=== PATIENT | male | born 1940 | race Caucasian/White ===

== ENCOUNTER 2023-07-07 01:26 | Emergency (ER) | payer OTHER, SELFPAY ==
--- NOTE | 2023-07-07 01:59 | ED.GENMED ---
History of Present Illness
General
Chief Complaint: Change in Mental Status
Source: patient
Exam Limitations: altered mental status
Time Seen by Provider: 07/07/23 01:40
Nursing documentation reviewed up to this point in time: agreed with
Travel History
Have you had any contact with someone who has COVID-19?: No
Do you have any symptoms of coronavirus? Fever > 100 degrees, chills, cough, shortness of breath, sore throat, loss of taste or smell, muscle aches, or headache?: No
History of Present Illness
History of Present Illness:
83-year-old male from care home presents for evaluation he has had a wound on his scalp for a few weeks underwent a punch biopsy being treated with honey and Bactrim, brought in today due to 'change in mental status' because his dressing came off and he
states the plastic items are noting in his hand including a plastic screwdriver
Past History
Past History
ED Past Medical History: Cancer (Renal cell CA, prostate cancer ), GERD, Other (Diverticulosis/diverticulitis ) and Other (Chronic back pain, arthritis left shoulder. Takes ASA 3 tabs daily for pain.)
ED Past Surgical History: Tonsilectomy and Other (Left nephrectomy, prostatectomy )
Patient has exhibited threatening behavior?: No
PSI?: No
Social History
Tobacco: Non-smoker
Alcohol: None
Personal:
Living: senior care
Employment: Retired
Review of Systems
Review of Systems
Unable to obtain full review of systems at this time due to: other (Transfer record from the care home)
All Other Systems: Not applicable
Musculoskeletal: Reports no symptoms
Skin: Reports no symptoms
Neurological: Reports no symptoms
Phy Exam
Physical Exam
Physical Exam:
Physical Exam
General: no apparent distress, not acutely ill
Neck: Half dollar shaped elliptical wound top of his scalp with some honey like material in it
Lungs: no acute respiratory distress.
Neuro: alert and oriented. no focal neurological deficits
Skin: no rash
Psychiatric: Speech is slightly pressured, tangential but redirectable
Extremities: no edema.
Course
Orders/Labs/Results
Orders:
Orders
07/07/23 01:51
CT Head W/o Iv Contrast Urgent
Comment:
Reason For Exam: confusion head wound
07/07/23 01:55
Complete Blood Count/With Diff Urgent
Comprehensive Metabolic Panel Urgent
07/07/23 02:30
0.9% Sodium Chloride 1000 ml [Nss] 1,000 ml IV BOLUS
Abnormal Lab Results
07/07/23
01:55
RBC 3.88 L 10^6/uL
(4.70-6.10)
Hgb 12.5 L g/dL
(13.0-18.0)
Hct 34.0 L %
(39.0-52.0)
MCH 32.2 H pg
(27.0-31.0)
Absolute Neuts (auto) 7.3 H 10^3/uL
(1.4-6.5)
Absolute Monos (auto) 0.8 H 10^3/uL
(0.1-0.6)
Neutrophils % 75.3 H %
(42.2-75.2)
Lymphocytes % 15.0 L %
(20.5-51.1)
BUN 27 H mg/dl
(9-20)
Creatinine 1.7 H mg/dL
(0.7-1.3)
Calcium 11.2 H mg/dl
(8.4-10.2)
07/07/23 01:55
07/07/23 01:55
Vital Signs
Initial and Last Documented VS:
Initial Vital Signs
Temp Pulse Resp Pulse Ox
98.4 F 106 18 98
07/07/23 01:30 07/07/23 01:30 07/07/23 01:30 07/07/23 01:30
Last Documented Vital Signs
Temp Pulse Resp Pulse Ox
98.4 F 106 18 98
07/07/23 01:30 07/07/23 01:30 07/07/23 01:30 07/07/23 01:30
MDM/Problems Addressed
Differential Diagnosis Includes:
Psychosomatic psychiatric toxic metabolic doubt acute infectious
MDM/Problems Addressed:
Confusion scalp wound
*Critical Care Note
Total Time (30-74mins, 75-104mins- exclusive of procedures): Not Applicable
Update Note
Update Note:
Patient is nontoxic-appearing, etiology is not clear is a fairly poor historian will check CT of the head electrolytes CBC
2:30 AM update labs are noted creatinine up a bit, will hold his Bactrim given some fluids unclear if this explains his symptoms or not
Vision radiology report noted
ED Attending Note
-
Portions of this chart may have been created with voice recognition software.� Occasional wrong word or��sound alike� substitutions may have occurred due to the inherent limitations of voice recognition software.
Discharge Plan
Departure
Patient Disposition: Home (Routine Discharge)
Date of Disposition: 07/07/23
Time of Disposition: 03:47
Patient with high blood pressure during this ER visit?: No
Condition: Good
Covid-19: Not Applicable
Discharge Problem:
Visit for wound care
Instructions: Altered Mental Status (DC)
Prescriptions:
No Action
vitamin E 1,000 UNIT capsule
1,000 unit PO DAILY
ascorbic acid (vitamin C) [Vitamin C] 1,000 MG tablet
1,000 mg PO DAILY
Vitamin A
1 tab PO DAILY
Vitamin D3 5,000 UNITS
5,000 units PO DAILY
doxycycline hyclate 100 MG capsule
100 mg PO Q12 Qty: 20 0RF
Referrals:
[facility] [Family Provider] -
Activity Restrictions/Additional Instructions:
Stop taking Bactrim antibiotic
Follow-up with your physicians at the senior care
Interventions
Interventions:
*Risk Screen - Suicide Last Done: 07/07/23 01:49
*General Assessment Last Done: 07/07/23 01:49
*Neglect/Abuse Screening Last Done: 07/07/23 01:49
ED- Neurological Assessment Last Done: 07/07/23 01:50
ED Swallowing Screen Last Done: 07/07/23 01:50
Discharge Date and Time
Print Language: FRENCH
[2023-07-07 02:01] LABS: % Basophils 0.5 % (0-2); % Eosinophils 0.2 % (0-6); % Immature Granulocytes 0.4 % (0-0.5); % Monocytes 8.6 % (1.7-9.3); % Neutrophils 75.3 % (42.2-75.2); Absolute Basophils 0.1 10^3/uL (0-0.2); Absolute Lymphocytes 1.4 10^3/uL (1.2-3.4); Absolute Monocytes 0.8 10^3/uL (0.1-0.6); Absolute Neutrophils 7.3 10^3/uL (1.4-6.5); Hemoglobin 12.5 g/dL (13.0-18.0); Mean Corp Hgb Conc. 36.8 g/dL (33.0-37.0); Mean Corpuscular Hgb 32.2 pg (27.0-31.0); Mean Corpuscular Volume 87.6 fL (80.0-94.0); Mean Platelet Volume 9.1 fL (7.4-10.4); Nucleated Red Blood Cells % 0 % (-); Platelet Count 278 10^3/uL (130-400); Red Blood Cell Count 3.88 10^6/uL (4.70-6.10); Red Cell Dist. Width 12.2 % (11.5-14.5); White Blood Cell Count 9.6 10^3/uL (4.8-10.8)
[2023-07-07 02:13] LABS: ALT (SGPT) 16 U/L (0-50); AST (SGOT) 28 U/L (17-59); Alkaline Phosphatase 79 U/L (38-126); Blood Urea Nitrogen 27 mg/dl (9-20); Calcium 11.2 mg/dl (8.4-10.2); Carbon Dioxide 22 mmol/L (22-30); Chloride 105 mmol/L (98-107); Glucose 93 mg/dl (70-99); Potassium 4.6 mmol/L (3.5-5.1); Sodium 137 mmol/L (135-145); Total Bilirubin 0.5 mg/dl (0.2-1.3); eGFR 39.26
[2023-07-07] MEDS: NSS 1000 IV (03:00)
== END 2023-07-07 05:30 | disposition home or self-care (01) ==
LOC: EMR 01:26
PROVIDERS: EMERGENCY PHYSICIAN Emergency Medicine
DX: Z48.01 Encounter for change or removal of surgical wound dressing (principal); S01.04XA Puncture wound with foreign body of scalp, initial encounter; Y84.8 Other medical procedures as the cause of abnormal reaction of the patient, or of later complication, without mention of misadventure at the time of the procedure
CPT/HCPCS: 99284; 96360; 70450; 80053; 85025

== ENCOUNTER 2023-11-18 03:25 | Inpatient (IN) | payer OTHER, SELFPAY ==
[2023-11-17 21:59] VITALS: BP 127/93
[2023-11-17 22:00] VITALS: BP 127/93
[2023-11-17 22:05] VITALS: BMI 26.1
--- NOTE | 2023-11-17 22:12 | ED.GENMED ---
History of Present Illness
General
Chief Complaint: Abdominal Pain
Time Seen by Provider: 11/17/23 22:02
History of Present Illness
History of Present Illness:
83-year-old male presents from [facility] for evaluation of a nonreducing right inguinal hernia. Has a history of this hernia and has been able to reduce in the past however earlier this evening it 'popped out' and he was unable to
reduce it. He was given acetaminophen and fentanyl prehospital without any pain relief. Denies any nausea or vomiting
Past History
Past History
ED Past Medical History: Cancer (Renal cell CA, prostate cancer ), GERD, Other (Diverticulosis/diverticulitis ) and Other (Chronic back pain, arthritis left shoulder. Takes ASA 3 tabs daily for pain.)
ED Past Surgical History: Tonsilectomy and Other (Left nephrectomy, prostatectomy )
Patient has exhibited threatening behavior?: No
PSI?: No
Social History
Tobacco: Non-smoker
Alcohol: None
Personal:
Living: half-way
Employment: Retired
Review of Systems
Review of Systems
Allergies reviewed?: Yes
All Other Systems: ROS reviewed and negative except as documented in HPI and ROS
Phy Exam
Physical Exam
Physical Exam:
GEN: Well appearing, NAD, WDWN
HEENT: Oral mucosa moist, no scleral icterus
Cardiac: Regular rate
Lung: No respiratory distress, no tachypnea
Abdomen: Abdomen is generally soft and nondistended/nontender, there is a large right indirect inguinal hernia that is firm and nonreducible
MSK: No gross deformity or injuries
Skin: Good color, no pallor or jaundice, no rashes
Neuro: AO x3, moves all extremities freely
Psych: Calm, cooperative
Course
Orders/Labs/Results
Orders:
Orders
11/17/23 22:12
HYDROmorphone [Dilaudid] 0.5 mg IV NOW STA
11/17/23 22:36
CT Abd/Pel (IV only)-DH only Urgent
Comment:
Reason For Exam: incarcerated inguinal hernia
HYDROmorphone [Dilaudid] 1 mg IV NOW STA
11/17/23 22:43
Complete Blood Count/With Diff Urgent
Comprehensive Metabolic Panel Urgent
11/18/23 00:09
NG Tube [GI tube insertion- Treatment] ONCE
Piperacillin/Tazo 3.375 Gram [Zosyn] 3.375 gram in 50 ml IV NOW
11/18/23 00:56
Fentanyl Citrate/Pf [Sublimaze] 25 mcg IV PACU-Q5MPRN PRN
Fentanyl Citrate/Pf [Sublimaze] 50 mcg IV PACU-Q5MPRN PRN
Meperidine [Demerol] 12.5 mg IV PACU-Q5MPRN PRN
Ondansetron Injectable [Zofran] 4 mg IV PACU-ONCEPRN PRN
Prochlorperazine [Compazine] 5 mg IV PACU-ONCEPRN PRN
Notify MD As Directed
Notify physician if: for SDS patients with known or suspected sleep obstructive sleep apnea, monitor in the
PACU.
Notify MD for any apneic/desaturation episodes
O2 Therapy [RESP] Urgent
Titrate/Wean O2 to maintain O2 sat greater than (%): 92
Special Instructions: -Provide supplemental oxygen to achieve O2 sat of 92% or greater.
-After 15 min, may wean O2 and discontinue if patient is able to maintain O2 sat of 92%
or greater during recovery period.
If patient is a discharge home, without oxygen therapy, notify anestheiologist if
unable to maintain O2 SAT of 92% or greater on room air for MD clearance.
11/18/23 01:00
Flush (0.9% Sodium Chloride) [Flush (Nss)] See Dose Instructions IV PER PROTOCOL
Normosol (Mult Electrolytes) [Normosol-R/Plasmalyte-A] 1,000 ml IV PER PROTOCOL
11/18/23 01:02
Dexamethasone Sod Phosphate [Decadron] 20 mg .ROUTE .STK-MED ONE
Fentanyl Citrate/Pf [Sublimaze] 100 mcg .ROUTE .STK-MED ONE
Lidocaine 2% Mpf [Xylocaine Mpf 2%] 100 mg .ROUTE .STK-MED ONE
Ondansetron Injectable [Zofran] 4 mg .ROUTE .STK-MED ONE
Propofol [Diprivan] 20 ml .ROUTE .STK-MED
Rocuronium Conway [Rocuronium] 50 mg .ROUTE .STK-MED ONE
11/18/23 01:08
Sevoflurane [Ultane] 500 ml .ROUTE .STK-MED ONE
11/18/23 01:10
Admit/Transfer Patient As Directed
Co-Sign Provider:
Level of Care: Inpatient admission
Assign to:: Telemetry
Physician / Group: hospitalist
Diagnosis: strangulated right inguinal hernia
Reason for Telemetry: Arrhythmia
Date to Stop Telemetry: 11/21/23
Time to Stop Telemetry: 11:00
Reason for Hospitalization: surgery, abx, pain control
Expected length of stay greater than two midnights?: Yes
ELOS- Estimated Length of Stay in days: 3
I certify the patient meets the requirements for IP care: Yes
11/18/23 01:11
PRN Pain Medication Management As Directed
May give lesser potent ordered pain med per pt: Yes
preference::
Protocol:: Medication orders for pain may be administered in a
manner that supports deferring to patient preference
when the pt is:
- Requesting an ordered lesser potent pain medication.
Least to most potent pain medications are defined
as: acetaminophen < NSAID < tramadol < opioids
(morphine, oxycodone, hydromorphone).
- Requesting a lesser dose of the same medication IF
ORDERED.
- Requesting a less intrusive route of administration
if both routes are prescribed by the provider (PO <
IV).
11/18/23 01:13
Code Status As Directed
Resuscitation Status: Full Code
11/18/23 01:20
Bupivacaine 0.25%Pf/Epinephrin [Sensorcaine-Epi 0.25%-0.0005] 30 ml .ROUTE .STK-MED ONE
11/21/23 11:00
DC Protocol for Telemetry ONCE
Abnormal Lab Results
11/17/23
22:43
WBC 14.4 H 10^3/uL
(4.8-10.8)
RBC 4.44 L 10^6/uL
(4.70-6.10)
MCH 32.0 H pg
(27.0-31.0)
Abs Immat Gran (auto) 0.1 H 10^3/uL
(0-0.05)
Absolute Neuts (auto) 11.6 H 10^3/uL
(1.4-6.5)
Absolute Monos (auto) 1.0 H 10^3/uL
(0.1-0.6)
Neutrophils % 80.5 H %
(42.2-75.2)
Lymphocytes % 12.1 L %
(20.5-51.1)
Carbon Dioxide 21 L mmol/L
(22-30)
BUN 31 H mg/dl
(9-20)
Creatinine 1.4 H mg/dL
(0.7-1.3)
Glucose 118 H mg/dl
(70-99)
Calcium 10.5 H mg/dl
(8.4-10.2)
11/17/23 22:43
11/17/23 22:43
Vital Signs
Initial and Last Documented VS:
Initial Vital Signs
Temp Pulse Resp BP Pulse Ox
98.5 F 101 21 127/93 99
11/17/23 21:59 11/17/23 21:59 11/17/23 21:59 11/17/23 21:59 11/17/23 21:59
Last Documented Vital Signs
Temp Pulse Resp BP Pulse Ox
98.5 F 100 13 135/84 96
11/17/23 21:59 11/18/23 01:00 11/18/23 01:00 11/18/23 01:00 11/18/23 01:00
MDM/Problems Addressed
MDM/Problems Addressed:
I placed the patient in Trendelenburg with right leg in the frog-leg position, he received multiple doses of IV opiates and after ice application multiple attempts at manual reduction were unsuccessful. I reached out to general surgery after CT was
completed and the patient will be taken to the OR for urgent hernia reduction
*Critical Care Note
Total Time (30-74mins, 75-104mins- exclusive of procedures): 30 minutes
comment:
Critical care time: 30 minutes
Critical care time was exclusive of: Separately billable procedures, treating other patients, and teaching time
Critical care was necessary to treat or prevent imminent or life-threatening deterioration of the following conditions: Incarcerated hernia/bowel necrosis
Critical care time spent personally by me on the following activities:
[x] Review of old charts
[x] Obtaining history from patient or surrogate
[x] Ordering and review of the laboratory studies
[x] Ordering and review of radiographic studies
[x] Ordering and performing treatments and interventions
[x] Patient patient's response to treatment
[x] Development of treatment plan with patient or surrogate
ED Attending Note
-
Portions of this chart may have been created with voice recognition software.� Occasional wrong word or��sound alike� substitutions may have occurred due to the inherent limitations of voice recognition software.
Discharge Plan
Departure
Patient Disposition: OR
Date of Disposition: 11/18/23
Time of Disposition: 00:19
Presentation/result/management discussed w/ accepting MD/DO: Gen Surg--Thiago
Discharge Problem:
Inguinal hernia with strangulation
Prescriptions:
No Action
vitamin E 1,000 UNIT capsule
1,000 unit PO DAILY
ascorbic acid (vitamin C) [Vitamin C] 1,000 MG tablet
1,000 mg PO DAILY
Vitamin A
1 tab PO DAILY
Vitamin D3 5,000 UNITS
5,000 units PO DAILY
doxycycline hyclate 100 MG capsule
100 mg PO Q12 Qty: 20 0RF
Referrals:
UNKNOWN - PT DOES,NOT KNOW [Family Provider] -
Interventions
Interventions:
*Risk Screen - Suicide Last Done: 11/17/23 22:06
*General Assessment Last Done: 11/17/23 22:06
*Neglect/Abuse Screening Last Done: 11/17/23 22:06
ED- Fall Risk Assessment Last Done: 11/17/23 22:06
*ED COVID-19 Vaccine History Last Done: 11/17/23 22:06
*Nursing Disposition Last Done: 11/18/23 01:21
AD-Yylxhh-Pscuxewyac Assessment Last Done: 11/17/23 22:18
Discharge Date and Time
Discharge Date/Time: 11/18/23 01:22
Print Language: LUXEMBOURGISH
[2023-11-17] MEDS: DILAUDID 0.5 MG IV (22:15)
[2023-11-17] MEDS: DILAUDID 1 MG IV (22:43)
[2023-11-17 22:57] LABS: % Basophils 0.3 % (0-2); % Eosinophils 0.1 % (0-6); % Immature Granulocytes 0.3 % (0-0.5); % Lymphocytes 12.1 % (20.5-51.1); % Monocytes 6.7 % (1.7-9.3); % Neutrophils 80.5 % (42.2-75.2); Absolute Basophils 0.1 10^3/uL (0-0.2); Absolute Immature Granulocytes 0.1 10^3/uL (0-0.05); Absolute Lymphocytes 1.7 10^3/uL (1.2-3.4); Absolute Neutrophils 11.6 10^3/uL (1.4-6.5); Hematocrit 39.3 % (39.0-52.0); Hemoglobin 14.2 g/dL (13.0-18.0); Mean Corp Hgb Conc. 36.1 g/dL (33.0-37.0); Mean Corpuscular Volume 88.5 fL (80.0-94.0); Mean Platelet Volume 9.2 fL (7.4-10.4); Nucleated Red Blood Cells % 0 % (-); Platelet Count 254 10^3/uL (130-400); Red Blood Cell Count 4.44 10^6/uL (4.70-6.10); Red Cell Dist. Width 12.4 % (11.5-14.5); White Blood Cell Count 14.4 10^3/uL (4.8-10.8)
[2023-11-17 23:00] VITALS: BP 126/79
[2023-11-17 23:11] LABS: ALT (SGPT) 22 U/L (0-50); AST (SGOT) 22 U/L (17-59); Albumin 4.2 g/dl (3.5-5.0); Alkaline Phosphatase 103 U/L (38-126); Blood Urea Nitrogen 31 mg/dl (9-20); Calcium 10.5 mg/dl (8.4-10.2); Carbon Dioxide 21 mmol/L (22-30); Chloride 102 mmol/L (98-107); Estimated Creatinine Clearance 42 ml/min; Glucose 118 mg/dl (70-99); Potassium 4.1 mmol/L (3.5-5.1); Sodium 136 mmol/L (135-145); Total Bilirubin 0.5 mg/dl (0.2-1.3); Total Protein 6.8 g/dl (6.3-8.2); eGFR 49.56
[2023-11-17 23:45] VITALS: BP 127/78
[2023-11-18] VITALS (14 sets, daily range): BP systolic 112–135; BP diastolic 68–84
[2023-11-18] MEDS: ZOSYN 50 IV ×4 (00:28→17:21)
--- NOTE | 2023-11-18 01:11 | W.SUR.PREOP ---
Pre-Operative Surgical Note
-
I have examined this patient prior to the performance of the scheduled procedure.
The patient's condition is unchanged from the time of the current History and
Physical and the patient is able to undergo the scheduled procedure.
--- NOTE | 2023-11-18 01:12 | CON.GS ---
Consultation
-
Date/Time Consultation Requested: 11/18/2023 12 AM
Date/Time Consultation Performed: 11/18/2023 1 AM
Requesting Provider: Emergency department
Performing Provider: Dr. Das
Reason for Consultation: Incarcerated right inguinal hernia
Medical History
-
Chief Complaint: Right inguinal pain
History of Present Illness:
This is an 83-year-old incarcerated male who presents with 8 hours of right groin pain who presented to our ED and was found to have an incarcerated right inguinal hernia with small intestine confirmed on CT scan. His history is significant for
prostate surgery as well as nephrectomy for mass. He also endorses vomiting the food he ate earlier tonight around 7 PM. The patient denies Fever, Chest Pain, Shortness Of Breath, changes in urinary and bowel habits, unintentional weight loss,
jaundice, icterus, acolic stools.
Past Medical History
Past Medical History: None
Past Surgical History: Other (Left nephrectomy)
Social History
Tobacco: Non-Smoker
Alcohol: None
Drug: None
Living: [facility]
Family History
Family History: Reviewed & Not Pertinent
Allergies / Home Medications
Allergy/AdvReac Type Severity Reaction Status Date / Time
No Known Allergies Allergy Verified 07/07/23 01:30
�Medication �Instructions �Recorded �Confirmed �Type
Vitamin A 1 tab PO DAILY 06/13/08 12/28/13 History
ascorbic acid (vitamin C) 1,000 mg 1,000 mg PO DAILY 06/13/08 12/28/13 History
tablet (Vitamin C)
vitamin E 670 mg (1,000 unit) 1,000 unit PO DAILY 06/13/08 12/28/13 History
capsule
Vitamin D3 5,000 units PO DAILY 12/01/13 12/28/13 History
doxycycline hyclate 100 mg capsule 100 mg PO Q12 #20 caps 09/12/19 Rx
Review of Systems
-
All other systems: Negative unless noted
A 10 point review of systems was completed, and was negative except as per HPI.
Physical Exam
Vital Signs
Temp Pulse Resp BP Pulse Ox
98.5 F 95 0 127/78 99
11/17/23 21:59 11/18/23 00:30 11/18/23 00:15 11/18/23 00:00 11/18/23 00:30
11/16/23 11/17/23 11/18/23
06:59 06:59 06:59
Actual Weight 84.9 kg
Body Mass Index (BMI) 26.1
Lab Results
11/17/23 22:43
11/17/23 22:43
WBC 14.4 10^3/uL (4.8-10.8) H 11/17/23 22:43
Hgb 14.2 g/dL (13.0-18.0) 11/17/23 22:43
Hct 39.3 % (39.0-52.0) 11/17/23 22:43
Plt Count 254 10^3/uL (130-400) 11/17/23 22:43
Abs Immat Gran (auto) 0.1 10^3/uL (0-0.05) H 11/17/23 22:43
Neutrophils % 80.5 % (42.2-75.2) H 11/17/23 22:43
Physical Exam
General: Well Developed and No Apparent Distress
Respiratory: Non Labored Respirations
GI: Soft and Tender (Tender palpation in the right groin with an incarcerated irreducible right inguinal hernia. There is overlying skin changes.)
Genito-urinary: Inguinal Hernia
Data Reviewed
-
CT Scan: Image Personally Visualized and interpreted, Report Reviewed by me, Discussed with Physician and Discussed with Patient
Labs: Labs Reviewed by me, Discussed with Physician and Discussed with Patient
Total Time Spent with Patient (in minutes): 50
Assessment / Plan
-
This is an incarcerated 83-year-old male who presents with an incarcerated right inguinal hernia.
N.p.o., IV fluids, IV antibiotics.
Insert NG tube
Will plan for open exploration in the OR today. Possible bowel resection, possible mesh.
Given patient's social situation appreciate admission to the hospital service.
Risks/Benefits/Alternatives, expected postoperative course and possible complications (bleeding, infection, injury to surrounding structures, acute/chronic pain) discussed at length. Patient wishes to proceed with surgery. All questions answered.
Consent obtained.
I spent roughly 75 minutes in total for the care of this patient today including direct patient care and counseling, reviewing labs, imaging, coordination of care, as well as documentation.
--- NOTE | 2023-11-18 01:12 | HPS.HSE ---
Family Physician
-
Family Physician: NOT KNOW UNKNOWN - PT DOES
Chief Complaint
-
Abdominal pain
History of Present Illness
Patient is an 83-year-old who has a past medical history significant for prior prostate cancer and renal cancer status post nephrectomy and prostatectomy, solitary right kidney, CKD, presenting to the emergency department with acute abdominal pain.
Unable to obtain initial history from patient as he was rapidly taken to the OR. On arrival in the ED he had a CT scan of the abdomen which was concerning for incarcerated right inguinal hernia. Surgery was immediately consulted in the emergency
department patient taken to the OR.
His initial vitals showed that he was afebrile blood pressure was 137/78 with a pulse of 95. He had a white count of 14,000 hemoglobin of 14.2 and a platelet count of 254. Electrolytes are within normal limits except for creatinine of 1.4. His
calcium was 10.5.
Patient again seen status post OR. He was sedated was arousable. No acute distress. Immediate vital signs were stable.
Medical History
Past Medical History
Past Medical History: Reports Cancer (Renal cell cancer, prostate cancer)
Additional Past Medical History:
CKD
Past Surgical History: Reports Orthopedic (Laminectomy), Tonsilectomy and Urological (Prostatectomy)
Additional Past Surgical History:
Status post nephrectomy
Social History
Unable to obtain full social history at this time due to: Acuity
Tobacco: Non-smoker
Alcohol: None
Drug: None
Personal: Single
Living: Senior Care
Employment: Not Employed
Family History
Family History: Not pertinent
Allergies / Home Medications
Allergies reflects when Allergies were last updated in [facility].
Home Medications with original date entered in [facility]
Allergy/Medication List:
Allergies
Allergy/AdvReac Type Severity Reaction Status Date / Time
No Known Allergies Allergy Verified 07/07/23 01:30
Home Medications
NONE
Review of Systems
-
Unable to obtain full review of systems at this time due to: Acuity
Physical Exam
Vital Signs
Vital Signs
Temp Pulse Resp BP Pulse Ox
98.5 F 95 0 127/78 99
11/17/23 21:59 11/18/23 00:30 11/18/23 00:15 11/18/23 00:00 11/18/23 00:30
Physical Exam
General: No Apparent Distress
HEENT: NormoCephalic, Anicteric, Atraumatic and Other (NG tube)
Respiratory: Clear
Cardiac: S1/S2 and Tachycardia
Breast: Deferred by me
GI: Soft, Non Tender, Non Distended, Normal Bowel Sounds and Other (Incision site clean and dry)
Rectal: Deferred by Provider
Genito-urinary: Clear Urine and Drake
Musculoskeletal: No Clubbing, No Cyanosis and No Edema
Skin: Warm
Neuro: Sedated
Hematologic/Lymphatic: No Lymphadenopathy
Psych: Other (sedated)
Laboratory Results
-
11/17/23 22:43
11/17/23 22:43
Laboratory Results
Total Bilirubin 0.5 mg/dl (0.2-1.3) 11/17/23 22:43
AST 22 U/L (17-59) 11/17/23 22:43
ALT 22 U/L (0-50) 11/17/23 22:43
Alkaline Phosphatase 103 U/L (38-126) 11/17/23 22:43
Data Reviewed
-
CT Scan: Report Reviewed by me
Lab Data: Labs Reviewed by me
Old Records: Reviewed
Impression/Plan
-
IMPRESSION:
Patient with significant past medical history of renal cell cancer status post nephrectomy and solitary kidney, CKD, right inguinal hernia, prostate cancer status post prostatectomy, laminectomy, prior episode of encephalopathy secondary to
dehydration and ARAMIS, hypercalcemia who presents to the emergency department with abdominal pain nausea vomiting and was found to have a right incarcerated hernia. Surgery was consulted and patient taken immediately to the OR. Placed a surgical
note which indicated that the incarceration is led to ischemic bowel. He had small bowel resection and reanastomosis with a mesh repair of the hernia with absorbable mesh. There was minimal blood loss of about 23 cc. He had received about 750 mL
Ringer's.
PLAN:
1. Incarcerated Hernia S/P Repair - No immediate complications.
- admit to telemetry
- NPO for now
- Continue NGT to low intermittent suction
- LR at 100 ml/hr
- antiemetics and pain control
- ppi iv for now
- tirso-operative abx per surgery
Start DVT PPX
Code Status - Full Code
--- NOTE | 2023-11-18 03:06 | W.IMMPOSTOP ---
Surgical Immed Post Op Note
-
Primary Surgeon: Good Das MD
Assisting Surgeon: None
Pre-op Diagnosis: Incarcerated right inguinal hernia
Post-op Diagnosis: Incarcerated right inguinal hernia, necrotic small bowel
Procedure Performed:
1. Incarcerated inguinal hernia repair with mesh
2. Small bowel resection
Anesthesia Type: General
Specimen / Cultures:
1. Cord lipoma
2. Small bowel
Estimated Blood Loss: 23 cc
Complications: None
Operative Findings: Incarcerated right inguinal hernia containing hemorrhagic fluid and 6 cm of necrotic small bowel. This was resected and a [id number] stapled, functional end-to-end small bowel anastomosis was fashioned. After closure of the
mesenteric defect and NT tension stitch the anastomosis was returned to the abdomen. The hernia sac was closed but did have a notable sliding component of preperitoneal tissue. The indirect space was fairly small and there was a little
contamination but we elected to place a resorbable phasix mesh that was cut to size and secured in a typical Pat fashion.
POST OP PLAN:
Imaging: None
Labs: Routine AM
Diet: n.p.o., NG tube to low intermittent wall suction
Analgesia: IV Tylenol scheduled, Dilaudid 0.2mg q2h PRN
Neuro/vascular checks: q4h
AC/AP: Hold Therapeutic AC, Ok for DVT PPx
Activity: Ad Kimi
Wound/Incisions/Drains: Routine
Abx: Will continue Zosyn or equivalent x 4 days
Dispo: RNF
[2023-11-18] MEDS: LR 1000 IV ×2 (04:05→17:21)
[2023-11-18 06:05] LABS: Hematocrit 38.8 % (39.0-52.0); Hemoglobin 13.5 g/dL (13.0-18.0); Mean Corp Hgb Conc. 34.8 g/dL (33.0-37.0); Mean Corpuscular Hgb 32.1 pg (27.0-31.0); Mean Corpuscular Volume 92.2 fL (80.0-94.0); Mean Platelet Volume 9.8 fL (7.4-10.4); Platelet Count 221 10^3/uL (130-400); Red Blood Cell Count 4.21 10^6/uL (4.70-6.10); Red Cell Dist. Width 12.5 % (11.5-14.5); White Blood Cell Count 13.8 10^3/uL (4.8-10.8)
[2023-11-18 06:20] LABS: Blood Urea Nitrogen 29 mg/dl (9-20); Calcium 9.7 mg/dl (8.4-10.2); Carbon Dioxide 25 mmol/L (22-30); Chloride 102 mmol/L (98-107); Estimated Creatinine Clearance 42 ml/min; Glucose 136 mg/dl (70-99); Phosphorus 3.6 mg/dl (2.5-4.5); Potassium 4.7 mmol/L (3.5-5.1); Sodium 138 mmol/L (135-145); eGFR 49.56
--- NOTE | 2023-11-18 07:33 | W.PN.HOSP.TC ---
Addendum entered and electronically signed by Flavio Dominguez MD 11/18/23 22:58:
Attending Addendum-
I saw and evaluated the patient. I reviewed the resident�s note and agree with findings and plan as documented in the resident�s note. Sub: denies abd pain, passing flatus, no bm yet Full 12 point ROS reviewed and negative except as documented Exam:
Vitals reviewed in chart GEN-NAD heent NG tube in place heart RRR lungs clear abd incision glued/CDI pos BS Le no edema
# Incarcerated Hernia-
- s/p Incarcerated inguinal hernia repair with mesh and Small bowel resection- POD #0
- advance diet per surgery
- Continue NGT to low intermittent suction per surgery
- LR at 100 ml/hr per surgery
- antiemetics and pain control
- tirso-operative abx per surgery
# Leukocytosis
- trending down
- repeat cbc in am
# H/O prostatectomy/nephrectomy/urinary retention
- cont dalal for now
- dc dalal when more ambulatory
# CKD 3a
- avoid NT agents
- repeat bmp in am
cont DVT PPX
Code Status - Full Code
Dispo DC back to [facility] when ok with surgery
Time spent coordinating care, review of plan of care with resident, personally reviewed records in EMR, med rec, consults, notes, labs, radiology, d/w nursing � 58 mins
Original Note:
Today's Communication/Plan
-
Continue antiemetics and pain control. PPI IV for stress ulcer prophylaxis. Perioperative antibiotics as per surgery. Monitor surgical wound and ensure that it is not infected. Patient will be NPO as per surgery. Routine labs in the AM.
Assessment / Plan
Assessment / Plan
HPI: Patient is an 83-year-old male with a past medical history of prior prostate cancer, renal cancer s/p nephrectomy and prostatectomy, solitary right kidney, and CKD who presented from [facility] for evaluation of a nonreducing
right inguinal hernia. He was diagnosed with a right inguinal hernia on Gregoria 19 of this year. He believes that his hernia was due to stress as he was recently convicted for crime and incarcerated. After his diagnosis with inguinal hernia he was
given a hernia belt which he used diligently for 5 months. Unfortunately, the belt got dirty and the patient felt it was necessary to clean it so he took it off and washed it. Unfortunately he forgot to bring it with him back to his long-term
facility which he is currently incarcerated at and went about 3 to 4 days without the belt. He has had a history of this hernia and was able to reduce it in the past but earlier the evening prior to his presentation to the emergency department it
'popped out' and he was unable to reduce it. Immense pain along with nausea and vomiting ensued and the patient stated he threw up approximately 4 pounds of contents from his stomach. He was given acetaminophen and fentanyl prior to arriving to
the hospital without any pain relief. He denied any nausea or vomiting. A CT scan of the abdomen was conducted in the emergency department which was concerning for incarcerated right inguinal hernia. Surgery was immediately consulted and the
patient was taken to the the operating room. He was admitted to [facility] for incarcerated right inguinal hernia.
Past surgical history: Laminectomy, tonsillectomy, nephrectomy, and prostatectomy
Impression/Plan:
-Incarcerated right inguinal hernia: Resolved
S/p repair�no immediate complication
Patient has been admitted to telemetry to be monitored
N.p.o. for the time being
Continue NGT to low intermittent suction
Lactated Ringer's at 100 mL/hr
Continue antiemetics and pain control
PPI IV for stress ulcer prophylaxis
Perioperative antibiotics as per surgery
-Urinary retention:
Patient is currently Dalal status
-Lumbosacral spondylosis:
Continue to monitor
DVT prophylaxis: Heparin subcu
Full CODE STATUS
Anticipated Discharge: 24 - 48 hours
Subjective/Interval History
-
Date of Service: November 18, 2023
Met with patient at the bedside. Overall, he is doing much better and he feels like the surgery went well. He showed me his surgical wound that is healing and discussed his past medical history in regards to the hernia with me at the bedside. He
believes that he is recovering well. He got a phone call from his daughter prior to me finishing the interview and preferred to speak to his daughter at the present time.
Objective Data
-
Labs:
Laboratory Results
11/17/23 11/18/23
22:43 04:47
WBC 14.4 H 13.8 H
Hgb 14.2 13.5
Hct 39.3 38.8 L
Plt Count 254 221
Sodium 136 138
Potassium 4.1 4.7
Chloride 102 102
Carbon Dioxide 21 L 25
BUN 31 H 29 H
Creatinine 1.4 H 1.4 H
Glucose 118 H 136 H
Calcium 10.5 H 9.7
Total Bilirubin 0.5
AST 22
ALT 22
Alkaline Phosphatase 103
Vital Signs:
Vital Signs
Temp Pulse Resp BP Pulse Ox
99.0 F 100 18 120/74 99
11/18/23 06:12 11/18/23 06:12 11/18/23 06:12 11/18/23 06:12 11/18/23 06:12
I&O
11/17/23 11/18/23 11/19/23
06:59 06:59 06:59
Intake Total 200 / 200
Output Total 200 / 200
Balance 200 / 200 -200 / -200
[2023-11-18] MEDS: HEPARIN 5000 UNITS SC ×2 (09:14→19:54)
--- NOTE | 2023-11-18 10:47 | CM ---
Admitted for Incarcerated Hernia S/P Repair
Pt from [facility]. Called [facility], spoke with Dorian. Confirmed PCP - Claudia Garnett, Pharm - [facility]
Will return when medically ready for discharge
Plan - return to [facility] when medically ready
R - [phone]
F - [phone]
--- NOTE | 2023-11-18 14:41 | W.PN.GS2 ---
Today's Communication / Plan
-
Cont current care
Assessment / Plan
-
83M POD1 s/p open repair strangulated RIH with SBR and phasix mesh placement
AFVSS, passed small flatus, pain controlled
Plan:
Cont NGT decompression, await more robust bowel function
PRN pain meds
Cont tirso-op IV abx
DVT ppx
Ambulate
Cont dalal until more mobile
Subjective Data
-
Date of Service: November 18, 2023
AFVSS, denies pain, dneies n/v with NGT to suction, passed small flatus during encounter
Objective Data
-
Intake and Output
11/17/23 11/18/23 11/19/23
06:59 06:59 06:59
Intake Total 200 / 200
Output Total 300 / 300
Balance 200 / 100 -300 / -300
Intake:
IV fluids (Total) 200 / 200
Normosol 200 / 200
Output:
Gastrointestinal tube output ( 100 / 100
Total)
[place] Sump 100 / 100
Urine, Dalal 200 / 200
Vital Signs
Temp Pulse Resp BP Pulse Ox
97.7 F 92 18 112/72 96
11/18/23 11:05 11/18/23 11:05 11/18/23 11:05 11/18/23 11:05 11/18/23 12:59
Lab Results
11/18/23 04:47
11/18/23 04:47
Calcium 9.7 mg/dl (8.4-10.2) 11/18/23 04:47
Phosphorus 3.6 mg/dl (2.5-4.5) 11/18/23 04:47
Magnesium 2.0 mg/dl (1.6-2.3) 11/18/23 04:47
Total Bilirubin 0.5 mg/dl (0.2-1.3) 11/17/23 22:43
AST 22 U/L (17-59) 11/17/23 22:43
ALT 22 U/L (0-50) 11/17/23 22:43
Alkaline Phosphatase 103 U/L (38-126) 11/17/23 22:43
Total Protein 6.8 g/dl (6.3-8.2) 11/17/23 22:43
Albumin 4.2 g/dl (3.5-5.0) 11/17/23 22:43
Physical Exam
-
Gen: NAD
Abd: soft, approp ttp, groin incision cdi with mild expected localized soft tissue edema
[2023-11-19] MEDS: ZOSYN 50 IV ×5 (00:02→23:53)
[2023-11-19 03:14] VITALS: BP 124/73
[2023-11-19] MEDS: LR 1000 IV (05:27)
[2023-11-19 06:45] LABS: Hemoglobin 12.5 g/dL (13.0-18.0); Mean Corp Hgb Conc. 34.7 g/dL (33.0-37.0); Mean Corpuscular Hgb 31.2 pg (27.0-31.0); Mean Corpuscular Volume 89.8 fL (80.0-94.0); Mean Platelet Volume 9.6 fL (7.4-10.4); Platelet Count 235 10^3/uL (130-400); Red Blood Cell Count 4.01 10^6/uL (4.70-6.10); Red Cell Dist. Width 12.5 % (11.5-14.5); White Blood Cell Count 12.7 10^3/uL (4.8-10.8)
[2023-11-19 07:10] VITALS: BP 118/71
[2023-11-19 07:22] LABS: ALT (SGPT) 18 U/L (0-50); AST (SGOT) 18 U/L (17-59); Albumin 3.3 g/dl (3.5-5.0); Alkaline Phosphatase 59 U/L (38-126); Blood Urea Nitrogen 30 mg/dl (9-20); Calcium 9.3 mg/dl (8.4-10.2); Carbon Dioxide 25 mmol/L (22-30); Chloride 103 mmol/L (98-107); Estimated Creatinine Clearance 42 ml/min; Glucose 104 mg/dl (70-99); Potassium 4.2 mmol/L (3.5-5.1); Sodium 138 mmol/L (135-145); Total Bilirubin 0.8 mg/dl (0.2-1.3); Total Protein 5.9 g/dl (6.3-8.2); eGFR 49.56
--- NOTE | 2023-11-19 07:26 | OR.RPT ---
Operative Report
Operative Report
Patient Name: Bk Tejada
: 1940
Date of Operation: 11/18/2023
Preoperative Diagnosis: Incarcerated right inguinal hernia
Postoperative Diagnosis: Strangulated right inguinal hernia
Procedure(s):
1. Open right incarcerated inguinal hernia repair with mesh
2. Small bowel resection
Surgeon(s):
Dr. Das
Alternative Medicine Practitioner(s):
None
Anesthesia: General
Estimated Blood Loss: 23 cc
Urine Output: None
Drains/Lines/Implants:
7 x 10 cm phasix coated (absorbable) mesh cut to size
16 Lithuanian Drake catheter
Specimens:
1. Cord lipoma
2. Small bowel
Indication for surgery: This is an 83-year-old incarcerated male who presents with a 1 day history of right groin pain found to have an acutely incarcerated right inguinal hernia confirmed on CT and exam. After placement of an NG tube and
discussion of risk benefits and alternatives he was taken urgently to the operating room for operative exploration. Consent was signed.
Operative Findings: Incarcerated right inguinal hernia containing hemorrhagic fluid and 6 cm of necrotic small bowel. This was resected and a [id number] stapled, functional end-to-end small bowel anastomosis was fashioned. After closure of the
mesenteric defect and NT tension stitch the anastomosis was returned to the abdomen. The hernia sac was closed but did have a notable sliding component of preperitoneal tissue. The indirect space was fairly small and there was a little
contamination but we elected to place a resorbable phasix mesh that was cut to size and secured in a typical Pat fashion.
Details of the operation:
After induction of general anesthesia, the patient was clipped, prepped and draped in the supine position a 16 Lithuanian Drake catheter was placed. A team timeout was performed confirming administration of DVT prophylaxis, IV antibiotics and SCDs. The
ASIS and pubic tubercle were marked and an incision was chosen along the course of a skin line. The skin was anesthestized with Lidocaine. An incision was made through the skin line and dissection carried down through subcutaneous tissue and
Cara's fascia. The superficial epigastric vein was identified and ligated. A Small Jovani wound retractor was used to provide exposure. The external oblique fibers were then divided in the direction of travel. The ilioinguinal nerve was identified
and preserved. Dissection was carried down to the floor, which revealed the following:
At the site of the indirect (internal) ring, there was a moderately sized hernia sac that was purple in color with firm contents.
A cord lipoma was also identified and resected at the level of the internal ring.
The direct space, floor of the canal revealed no weakness.
The hernia sac was opened between 2 forceps and the sac was entered safely. There was an immediate ascencio of blood tinged fluid that was suctioned up. Inside the sac was a 6 cm section of frankly hemorrhagic small bowel that was not viable. We thus
elected to do a small bowel resection using a Jose technique. Our transection points were identified and incisions in the antimesenteric portion of the small bowel were made and slightly dilated to allow passage of an 80 purple load on a LASHANDA
stapler. The antimesenteric sides were together and the stapler was fired. The lumen was evaluated to show complete anastomosis and that there was no bleeding. We then used a second fire of an 80 purple to close the common enterotomy
taking care to ensure that the previous staple lines were offset. The intervening small bowel mesentery was ligated using bipolar energy device and the necrotic small bowel was passed off the field. The mesenteric defect was then closed with a
running silk suture and 2 crotch stitches were placed to reduce tension at the staple line. The bowel was then carefully placed back through the hernia sac into the abdomen. The hernia sac was then closed with Vicryl suture, after high ligation of
the sac. The field was irrigated with saline and suctioned until dry. Hemostasis was achieved. As there was minimal contamination I felt it was safe to place a resorbable mesh so a 7 x 10 cm phasic's coated (absorbable) mesh was cut to size and
secured at the pubic tubercle, inferiorly along the inguinal ligament, laterally/superiorly in the conjoint tendon using interrupted 0 PDS sutures. A slit was made in the mesh just wide enough to accommodate the cord this was also reapproximated
with the PDS suture. Care was taken not to injure or entrap any nerves. The external oblique fibers were then closed using a running 2-0 Vicryl suture. Cara's fascia was then closed with interrupted 3-0 Vicryl suture. The skin was closed in
layers with interrupted 3-0 vicryl deep dermals followed by a running subcuticular 4-0 Monocryl followed by dermabond. The patient returned to the Recovery Room in stable condition. Sponge and instrument counts were correct. No specimens sent to
Pathology.
I was the attending physician and performed the procedure with no assistance. I was present for all portions of the case
Good Das MD
--- NOTE | 2023-11-19 07:54 | W.PN.HOSP.TC ---
Addendum entered and electronically signed by Flavio Dominguez MD 11/19/23 22:18:
Attending Addendum-
I saw and evaluated the patient. I reviewed the resident�s note and agree with findings and plan as documented in the resident�s note. Sub: complains of abd pain @ incision site. passing gas had bm and urinating as usual. has appetite. Full 12 point
ROS reviewed and negative except as documented Exam: Vitals reviewed in chart GEN-NAD heart RRR lungs clear abd incision glued/CDI pos BS mild TTP @ incision Le no edema - non palp bladder
# Incarcerated Hernia-
- s/p Incarcerated inguinal hernia repair with mesh and Small bowel resection- POD #2
- advance diet - tolerating clears
- DC NGT
- DC IVF
- antiemetics and pain control
- tirso-operative abx per surgery
# Leukocytosis
- cont to trend down
- repeat cbc in am
# H/O prostatectomy/nephrectomy/urinary retention
- DC dalal
- successful TOV
# CKD 3a
- @ baseline
- avoid NT agents
- repeat bmp in am
cont DVT PPX
Code Status - Full Code
Dispo DC back to [facility] when ok with surgery - likely soon
Time spent coordinating care, review of plan of care with resident, personally reviewed records in EMR, med rec, consults, notes, labs, d/w nursing � 55 mins
Original Note:
Today's Communication/Plan
-
NGT decompression has been discontinued. The patient has been advanced to a clear liquid diet. Continue as needed pain meds. Continue perioperative IV antibiotics. Early mobility as tolerated. Dalal has been discontinued. Monitor urine output.
Assessment / Plan
Assessment / Plan
HPI: Patient is an 83-year-old male with a past medical history of prior prostate cancer, renal cancer s/p nephrectomy and prostatectomy, solitary right kidney, and CKD who presented from [facility] for evaluation of a nonreducing
right inguinal hernia. He was diagnosed with a right inguinal hernia on June 04 of this year. He believes that his hernia was due to stress as he was recently convicted for crime and incarcerated. After his diagnosis with inguinal hernia he was
given a hernia belt which he used diligently for 5 months. Unfortunately, the belt got dirty and the patient felt it was necessary to clean it so he took it off and washed it. Unfortunately he forgot to bring it with him back to his long-term
facility which he is currently incarcerated at and went about 3 to 4 days without the belt. He has had a history of this hernia and was able to reduce it in the past but earlier the evening prior to his presentation to the emergency department it
'popped out' and he was unable to reduce it. Immense pain along with nausea and vomiting ensued and the patient stated he threw up approximately 4 pounds of contents from his stomach. He was given acetaminophen and fentanyl prior to arriving to
the hospital without any pain relief. He denied any nausea or vomiting. A CT scan of the abdomen was conducted in the emergency department which was concerning for incarcerated right inguinal hernia. Surgery was immediately consulted and the
patient was taken to the the operating room. He was admitted to [facility] for incarcerated right inguinal hernia.
Past surgical history: Laminectomy, tonsillectomy, nephrectomy, and prostatectomy
Impression/Plan:
-Incarcerated right inguinal hernia: Resolved
S/p repair�no immediate complication
Patient has been admitted to telemetry to be monitored
Diet advanced to clear liquids
NGT discontinued
IV fluids increased
Dalal catheter removed
Continue antiemetics and pain control
PPI IV for stress ulcer prophylaxis
Continue perioperative antibiotics as per surgery for 3 more days
Early ambulation as tolerated.
-Leukocytosis:
White blood cells were at 14.4 on 11/17/2023 indicating leukocytosis
White blood cells continue to trend downwards and on 11/19/2023 his white blood cells were at 12.7
Continue to trend
-Hx of prostatectomy/nephrectomy/urinary retention:
Dalal has been discontinued
Monitor urine output with I/Os
-CKD IIIa:
The patient's EGFR has been consistently 49.56 which categorizes this patient as CKD stage IIIa.
Avoid nephrotoxic agents
-Lumbosacral spondylosis:
Continue to monitor
DVT prophylaxis: Heparin subcu and sequential compression devices
Full CODE STATUS
Anticipated Discharge: 24 - 48 hours
Subjective/Interval History
-
Date of Service: November 19, 2023
Met with patient at the bedside. He believes that his surgery went well and he is no longer in extreme pain. He has some mild irritation near his surgical wound but believes it is healing well. He just avoids touching the wound in order to allow
it to heal. He says that he has been having a lot of flatulence and would like to eat.
Objective Data
-
Labs:
Laboratory Results
11/19/23
04:33
WBC 12.7 H
Hgb 12.5 L
Hct 36.0 L
Plt Count 235
Sodium 138
Potassium 4.2
Chloride 103
Carbon Dioxide 25
BUN 30 H
Creatinine 1.4 H
Glucose 104 H
Calcium 9.3
Total Bilirubin 0.8
AST 18
ALT 18
Alkaline Phosphatase 59
Vital Signs:
Vital Signs
Temp Pulse Resp BP Pulse Ox
98.0 F 89 18 118/71 97
11/19/23 07:10 11/19/23 07:10 11/19/23 07:10 11/19/23 07:10 11/19/23 07:10
I&O
11/18/23 11/19/23 11/20/23
06:59 06:59 06:59
Intake Total 200 / 200 1835 / 1835
Output Total 3225 / 3225
Balance 200 / 100 -1390 / -1390
Review of Systems
-
History Source: Patient
All other systems: Reviewed and negative
Constitutional: Reports No Symptoms
EENT: Reports No Symptoms Reported
Respiratory: Reports No Symptoms
Cardiac: Reports No Symptoms
Abdomen/GI: Reports No Symptoms
Breast: Reports No Symptoms
Genitourinary: Reports No Symptoms
Musculoskeletal: Reports No Symptoms
Skin: Reports Other (Slight discomfort near his surgical wound)
Neuro: Reports No Symptoms
Endocrine: Reports No Symptoms
Hematologic / Lymphatic: Reports No Symptoms
Physical Exam
-
General: Well Developed, Well Nourished and No Apparent Distress
HEENT: Normocephalic, Atraumatic and Moist Mucous Membranes
Respiratory: Clear to Auscultation
Cardiac: Regular Rhythm and S1/S2
Breast: Deferred by me
GI: Soft, Nontender, Nondistended and Normal Bowel Sounds
Musculoskeletal: No Clubbing, No Cyanosis and No Edema
Skin: Other (Surgical scar at the right inguinal region)
Psych: Calm
--- NOTE | 2023-11-19 09:03 | W.PN.GS2 ---
Today's Communication / Plan
-
`
Assessment / Plan
-
83M POD2 s/p open repair strangulated RIH with SBR and phasix mesh placement
AFVSS
not much NGT output and non bilious - passing flatus regularly
Plan: NGT removed
clear liquid diet today
increased IVF rate - BUN and Cr rising a bit
remove dalal
Cont tirso-op IV abx
DVT ppx
Ambulate
Subjective Data
-
Date of Service: November 19, 2023
pt seen and examined
denies post op pain
states passing flatus regularly
no nausea
c/o NGT
Objective Data
-
Intake and Output
11/18/23 11/19/23 11/20/23
06:59 06:59 06:59
Intake Total 200 / 200 1835 / 1835
Output Total 3225 / 3225
Balance 200 / 100 -1390 / -1390
Intake:
IV fluids (Total) 200 / 200 1575 / 1575
Normosol 200 / 200
IV piggybacks 200 / 200
Amount instilled into GI Tube ( 60 / 60
Total)
[place] Sump 60 / 60
Output:
Gastrointestinal tube output ( 550 / 550
Total)
[place] Sump 550 / 550
Urine, Dalal 2675 / 2675
Vital Signs
Temp Pulse Resp BP Pulse Ox
98.0 F 89 18 118/71 97
11/19/23 07:10 11/19/23 07:10 11/19/23 07:10 11/19/23 07:10 11/19/23 07:10
Lab Results
11/19/23 04:33
11/19/23 04:33
Calcium 9.3 mg/dl (8.4-10.2) 11/19/23 04:33
Phosphorus 3.6 mg/dl (2.5-4.5) 11/18/23 04:47
Magnesium 2.0 mg/dl (1.6-2.3) 11/18/23 04:47
Total Bilirubin 0.8 mg/dl (0.2-1.3) 11/19/23 04:33
AST 18 U/L (17-59) 11/19/23 04:33
ALT 18 U/L (0-50) 11/19/23 04:33
Alkaline Phosphatase 59 U/L (38-126) 11/19/23 04:33
Total Protein 5.9 g/dl (6.3-8.2) L 11/19/23 04:33
Albumin 3.3 g/dl (3.5-5.0) L 11/19/23 04:33
Physical Exam
-
NAD AAOx3
ABD: soft, ND NTTP
right inguinal incision with glue, - no erythema, no drainage, no open wounds
NGT with clear contents - non bilious
dalal clear yellow urine
[2023-11-19] MEDS: HEPARIN 5000 UNITS SC ×2 (09:20→20:00)
--- NOTE | 2023-11-19 13:13 | PN.CDI ---
Addendum entered and electronically signed by Terrance Reis MD, Resident 11/20/23 17:00:
This was a Clinically insignificant abnormal lab value secondary to acute stress due to strangulated hernia
Original Note:
CDI
- -
CDI:
Physician Documentation Request
Admit Date: 11/18/23 03:25
Dear Doctor,
Please review the following and provide your response in the progress notes.
Clinical Indicators:
- 10 PN 'Incarcerated Hernia...s/p Incarcerated inguinal hernia repair with mesh and Small bowel resection'
- On admission: WBC 14.4, HR 90-100s, RR 20s
- IV abs Zosyn given
- 3L IVF given
Please clarify which most accurately describes the patient:
SIRS due to a non-infectious source
Clinically insignificant abnormal lab value
Other
Use of terms such as suspected, likely, concern for, or probable (associated with a specific diagnosis that is being evaluated, monitored, or treated as if it exists) are acceptable and can be coded in the inpatient setting, when documented at the
time of discharge.
Thank you,
Garland Cleary RN
CDI Specialist
Please use your independent medical judgment in providing your response.
[2023-11-19 15:05] VITALS: BP 118/77
--- NOTE | 2023-11-19 15:49 | CM ---
patient is sp strangulated hernia repair with mesh,ngt out,clear liquids.dalal removed,cont iv abx,ambulate.Plan: return to [facility] when medically stable.
[2023-11-19 19:22] VITALS: BP 114/72
[2023-11-19] MEDS: LR IV (20:04)
[2023-11-19 23:00] VITALS: BP 104/69
[2023-11-20] MEDS: LR 1000 IV (00:29)
[2023-11-20] MEDS: LR IV ×2 (01:00→17:06)
[2023-11-20 03:00] VITALS: BP 107/73
[2023-11-20] MEDS: ZOSYN 50 IV (05:05)
[2023-11-20 06:29] LABS: Hematocrit 34.9 % (39.0-52.0); Hemoglobin 12.4 g/dL (13.0-18.0); Mean Corp Hgb Conc. 35.5 g/dL (33.0-37.0); Mean Corpuscular Hgb 32.4 pg (27.0-31.0); Mean Corpuscular Volume 91.1 fL (80.0-94.0); Mean Platelet Volume 9.4 fL (7.4-10.4); Platelet Count 189 10^3/uL (130-400); Red Blood Cell Count 3.83 10^6/uL (4.70-6.10); Red Cell Dist. Width 12.3 % (11.5-14.5)
[2023-11-20 06:45] LABS: ALT (SGPT) 16 U/L (0-50); AST (SGOT) 19 U/L (17-59); Albumin 3.1 g/dl (3.5-5.0); Alkaline Phosphatase 52 U/L (38-126); Blood Urea Nitrogen 26 mg/dl (9-20); Calcium 9.3 mg/dl (8.4-10.2); Carbon Dioxide 25 mmol/L (22-30); Chloride 105 mmol/L (98-107); Estimated Creatinine Clearance 45 ml/min; Glucose 90 mg/dl (70-99); Potassium 4.2 mmol/L (3.5-5.1); Sodium 139 mmol/L (135-145); Total Bilirubin 0.8 mg/dl (0.2-1.3); Total Protein 5.7 g/dl (6.3-8.2); eGFR 54.17
[2023-11-20 07:14] VITALS: BP 114/74
--- NOTE | 2023-11-20 07:28 | W.PN.HOSP.TC ---
Addendum entered and electronically signed by Flavio Dominguez MD 11/21/23 00:01:
Attending Addendum-
I saw and evaluated the patient. I reviewed the resident�s note and agree with findings and plan as documented in the resident�s note. Sub: denies abd pain. passing gas had bm and urinating as usual. has good appetite. Full 12 point ROS reviewed and
negative except as documented Exam: Vitals reviewed in chart GEN-NAD heart RRR lungs clear abd incision glued/CDI pos BS mild TTP @ incision Le no edema - non palp bladder
# Incarcerated Hernia-
- s/p Incarcerated inguinal hernia repair with mesh and Small bowel resection
- advance diet - tolerating clears
- DC NGT
- DC IVF
- antiemetics and pain control
- tirso-operative abx augmentin on dc
- DC
# Leukocytosis
- resolved
# H/O prostatectomy/nephrectomy/urinary retention
- DC dalal
- successful TOV
# CKD 3a
- @ baseline
- avoid NT agents
- repeat bmp in am
cont DVT PPX
Code Status - Full Code
[facility]
Time spent coordinating care, DC planning, review of DC plan of care with resident, transition of care, review of records, med rec/scripts sent electronically, consults, notes, d/w consultants, nursing, family, surgery and CM� 36 mins
Original Note:
Today's Communication/Plan
-
Patient is medically stable at the present time and is appropriate for discharge. We will move forward with discharge planning. Patient has been recommended to follow-up with Good Parker MD 3 to 4 weeks postdischarge.
Assessment / Plan
Assessment / Plan
Impression/Plan:
-Incarcerated right inguinal hernia: Resolved
S/p repair�no immediate complication
Patient has been admitted to telemetry to be monitored
Patient has tolerated his low residue diet
NGT discontinued
Dalal catheter removed
Continue antiemetics and pain control
Continue perioperative antibiotics as per surgery for 2 more days -switched to p.o. Augmentin
Early ambulation as tolerated.
The patient has been recommended to follow-up with Dr. Forrest within 3 to 4 weeks postop
-Leukocytosis:
White blood cells were at 14.4 on 11/17/2023 indicating leukocytosis
White blood cells continue to trend downwards and on 11/20/2023 his white blood cells were at 9.0
Continue to trend
-Hx of prostatectomy/nephrectomy/urinary retention:
Dalal has been discontinued
Monitor urine output with I/Os
-CKD IIIa:
The patient's EGFR has been consistently 49.56 which categorizes this patient as CKD stage IIIa.
Avoid nephrotoxic agents
-Lumbosacral spondylosis:
Continue to monitor
DVT prophylaxis: Heparin subcu and sequential compression devices
Full CODE STATUS
Anticipated Discharge: 24 - 48 hours
Subjective/Interval History
-
Date of Service: November 20, 2023
Met with patient at the bedside. He was resting comfortably in his bed and believes that he is recovering well he has been able to pass gas and his appetite is normal. Only slight irritation from his surgical wound which he believes is healing
well. 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
Objective Data
-
Labs:
Laboratory Results
11/20/23
04:50
WBC 9.0
Hgb 12.4 L
Hct 34.9 L
Plt Count 189
Sodium 139
Potassium 4.2
Chloride 105
Carbon Dioxide 25
BUN 26 H
Creatinine 1.3
Glucose 90
Calcium 9.3
Total Bilirubin 0.8
AST 19
ALT 16
Alkaline Phosphatase 52
Vital Signs:
Vital Signs
Temp Pulse Resp BP Pulse Ox
98.8 F 87 14 107/73 97
11/20/23 03:00 11/20/23 03:00 11/20/23 03:00 11/20/23 03:00 11/20/23 03:00
I&O
11/19/23 11/20/23 11/21/23
06:59 06:59 06:59
Intake Total 1835 / 1835 340 / 340 178 / 1780
Output Total 3225 / 3225 600 / 600
Balance -1390 / -1390 -260 / -260 1779
Review of Systems
-
History Source: Patient
All other systems: Reviewed and negative
Constitutional: Reports No Symptoms
EENT: Reports No Symptoms Reported
Respiratory: Reports No Symptoms
Cardiac: Reports No Symptoms
Abdomen/GI: Reports No Symptoms
Breast: Reports No Symptoms
Genitourinary: Reports No Symptoms
Musculoskeletal: Reports No Symptoms
Skin: Reports No Symptoms
Neuro: Reports No Symptoms
Endocrine: Reports No Symptoms
Hematologic / Lymphatic: Reports No Symptoms
Allergy / Immunology: Reports No Symptoms
Physical Exam
-
General: Well Developed, Well Nourished and No Apparent Distress
HEENT: Normocephalic, Atraumatic and Moist Mucous Membranes
Respiratory: Clear to Auscultation
Cardiac: Regular Rhythm and S1/S2
Breast: Deferred by me
GI: Soft, Nontender, Nondistended and Normal Bowel Sounds
Rectal: Deferred by Provider
Genito-urinary: Deferred by me
Musculoskeletal: No Clubbing, No Cyanosis and No Edema
Skin: Warm and Dry
Neuro: Awake, Alert, Oriented and AO x 3
Psych: Calm
--- NOTE | 2023-11-20 07:39 | W.PN.GS2 ---
Addendum entered and electronically signed by Good Das MD 11/20/23 08:45:
I saw and examined the patient independently.
The resident's note was reviewed and I agree with the note, assessment and plan except where noted below.
Comment: 83-year-old male postoperative day 2 open right inguinal hernia repair with phasix mesh and small bowel resection for a strangulated right inguinal hernia. Doing well, expected postoperative course.
Falls for breakfast, low residue diet for lunch.
Switch to p.o. antibiotics. d2/4
Can begin dispo planning
Patient will need to follow-up with me in 3 to 4 weeks. Discharge instructions updated.
Original Note:
Today's Communication / Plan
-
Advance diet to full liquid for breakfast, low res for lunch. C/w tirso-op abx
Assessment / Plan
-
83M POD2 s/p open repair strangulated RIH with SBR and phasix mesh placement
Plan:
- Advance to full liquid diet AM, low residue lunch
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
- Cont tirso-op abx for 4 day course, switch to PO augmentin
- Early OOB mobility/ambulation
Subjective Data
-
Tolerating CLD. No nausea/vomiting/abdominal pain. Ambulating well, having bowel movements, passing flatus.
Objective Data
-
Intake and Output
11/19/23 11/20/23 11/21/23
06:59 06:59 06:59
Intake Total 1835 / 1835 340 / 340 1779
Output Total 3225 / 3225 600 / 600
Balance -1390 / -1390 -260 / -260 1779
Intake:
Oral fluids 240 / 240 240 / 240
IV fluids (Total) 1575 / 1575 1440 / 1440
IV piggybacks 200 / 200 100 / 100 100 / 100
Amount instilled into GI Tube ( 60 / 60
Total)
[place] Sump 60 / 60
Output:
Gastrointestinal tube output ( 550 / 550
Total)
[place] Sump 550 / 550
Urine, Drake 2675 / 2675 600 / 600
Other:
Number of approximated MODERATE 2 1
amounts of urine
Vital Signs
Temp Pulse Resp BP Pulse Ox
98.8 F 87 14 107/73 97
11/20/23 03:00 11/20/23 03:00 11/20/23 03:00 11/20/23 03:00 11/20/23 03:00
Lab Results
11/20/23 04:50
11/20/23 04:50
Calcium 9.3 mg/dl (8.4-10.2) 11/20/23 04:50
Phosphorus 3.6 mg/dl (2.5-4.5) 11/18/23 04:47
Magnesium 2.0 mg/dl (1.6-2.3) 11/18/23 04:47
Total Bilirubin 0.8 mg/dl (0.2-1.3) 11/20/23 04:50
AST 19 U/L (17-59) 11/20/23 04:50
ALT 16 U/L (0-50) 11/20/23 04:50
Alkaline Phosphatase 52 U/L (38-126) 11/20/23 04:50
Total Protein 5.7 g/dl (6.3-8.2) L 11/20/23 04:50
Albumin 3.1 g/dl (3.5-5.0) L 11/20/23 04:50
Physical Exam
-
General: Well appearing, NAD.
Abdominal: Soft, nondistended, nontender to palpation. No rebound or guarding. Post-surgical sites healing well.
[2023-11-20] MEDS: HEPARIN 5000 UNITS SC (08:52)
[2023-11-20] MEDS: AUGMENTIN 875 MG/125 MG 1 TABLET PO (08:52)
[2023-11-20 11:25] VITALS: BP 122/68
--- NOTE | 2023-11-20 15:06 | CM ---
Pt for discharge today to [facility]- spoke with Chuy - aware pt for discharge
Plan - transfer to [facility]
R - [phone]
- [phone]
[2023-11-20 15:35] VITALS: BP 123/79
--- NOTE | 2023-11-20 16:49 | W.DCSUMMARY ---
Addendum entered and electronically signed by Flavio Dominguez MD 11/21/23 00:02:
Read, reviewed, and agree. See same day progress note for additional details.
Phani Dominguez MD
Original Note:
Documented by User: Terrance Reis MD, Resident 11/20/23 16:58
Discharge Summary
Discharge Data
Date of Admission: 11/18/23
Date of Discharge: 11/20/23
-
Pending Results: No
Hospital Course
Patient is an 83-year-old male with a past medical history of prior prostate cancer, renal cancer s/p nephrectomy and prostatectomy, solitary right kidney, and CKD who presented from [facility] for evaluation of a nonreducing right
inguinal hernia. He was diagnosed with a right inguinal hernia on June 04 of this year. He believes that his hernia was due to stress as he was recently convicted for crime and incarcerated. After his diagnosis with inguinal hernia he was given
a hernia belt which he used diligently for 5 months. Unfortunately, the belt got dirty and the patient felt it was necessary to clean it so he took it off and washed it. Unfortunately he forgot to bring it with him back to his long-term facility
which he is currently incarcerated at and went about 3 to 4 days without the belt. He has had a history of this hernia and was able to reduce it in the past but earlier the evening prior to his presentation to the emergency department it 'popped
out' and he was unable to reduce it. Immense pain along with nausea and vomiting ensued and the patient stated he threw up approximately 4 pounds of contents from his stomach. He was given acetaminophen and fentanyl prior to arriving to the
hospital without any pain relief. He denied any nausea or vomiting. A CT scan of the abdomen was conducted in the emergency department which was concerning for incarcerated right inguinal hernia. Surgery was immediately consulted and the patient
was taken to the the operating room. He was admitted to [facility] for incarcerated right inguinal hernia.
He was immediately brought in for surgery and underwent an open right incarcerated inguinal hernia repair with mesh along with a small bowel resection. Approximately 6 cm of necrotic small bowel was resected and a functional end-to-end small bowel
anastomosis was fashioned. The patient tolerated the procedure well and his right inguinal area where his surgical wound is located appears to be healing well. The patient offers no complaints at the present time other than mild irritation at the
surgical site. He has been able to pass gas and move his bowels following the surgery and has an appetite. He was advanced to a low residue diet and tolerated it well. The patient believes that he was recovering well and that the surgery was
successful. The patient is ready to go home at this time.
The patient has reached maximal benefit from this hospital stay and is appropriate for discharge at the present time. There are no barriers that would impede this patient from being safely discharged. The patient should follow-up with Good "Anay"MD Keith 3 to 4 weeks following surgery. Postop discharge recommendations are included in the discharge packet. Patient has been advised to follow-up with the primary care provider in the outpatient setting within 1 to 2 weeks following his
discharge.
Discharge Plan
-
Patient Disposition: Correction
Discharge Diagnosis/Procedures: Incarcerated inguinal hernia. Right inguinal hernia repair with mesh, small bowel resection.
Condition: Good
Diet: No restrictions
Activity: No strenuous activity
Driving Restrictions: As prior to admission
Bathing Restrictions: OK to Shower
Activity Restrictions/Additional Instructions:
Instructions following Inguinal Hernia Repair
Please call [phone] if you have any questions or concerns after your surgery.
Wound Care:
Your incisions are covered with skin glue which will come off on its own in 5-10 days.
It is ok to shower the day after your surgery. Do not scrub the incisions, let soap and water wash over them and pat dry.
� Bruising around your incisions is normal.
� Using ice packs will help minimize this swelling.
� No swimming or soaking incisions for 1 week.
� Your stitches will dissolve and do not need to be removed.
Wear compression underwear or briefs, do not wear boxers or loose-fitting underwear.
Urinary retention:
If you are unable to urinate 6-8 hours after your surgery, please call [phone] to discuss further management.
Activity:
No heavy lifting more than 15 pounds for the next 3 weeks, then you may gradually lift heavier objects as tolerated by discomfort. Otherwise activity as tolerated by your comfort level.
Pain Management:
Use Tylenol, ibuprofen and ice packs to treat your pain.
� You may take 650 milligrams of Tylenol (Max 3 grams per day) every 6 hours, and 600 mg of ibuprofen also every 6 hours. (you can alternate them every 3 hours)
� You may use an ice pack to your incision as needed.
� If you still have pain not controlled by these measures, take your prescription pain medication if prescribed.
Medications:
You may resume your home medications.
Bowel Medications:
Prescription pain medication can make you constipated. If you take this medication, also take colace 100 mg twice daily (this is over the counter). If this is not sufficient, you may take Miralax (polyethylene glycol) to help move your bowels.
Diet:
After your procedure, there are no dietary restrictions.
Driving restrictions:
No driving if you are taking prescription pain medication or if you think your normal reaction time and attentiveness has been slowed by your surgery.
Things to Look out for:
Worsening Abdominal pain, redness or drainage from incision
Call Doctor for:
Please call if you notice worsening redness or drainage from incision(s) lasting longer than 5 days after your surgery, any foul-smelling drainage from the incision, pain not controlled by pain medications, persistent nausea and vomiting, or for any
fevers greater than 101.3 F. The number for questions/concerns is [phone]
Follow-up:
A follow-up appointment will be scheduled with your surgeon in 3-4 weeks. Please call prior to your appointment if you have any questions or concerns. [phone]
Referrals:
Good Das MD [Active] - in three to four weeks
Terrnace Reis MD, Resident [Family Practice Resident Year1] - in one to two weeks
UNKNOWN - PT DOES,NOT KNOW [Family Provider] -
Prescriptions:
New
amoxicillin-pot clavulanate 875-125 mg Tablet
1 tab PO Q12 Qty: 4 0RF
acetaminophen 325 mg tablet
650 mg PO Q6HPRN PRN (Reason: mild pain) Qty: 14 0RF
ibuprofen 600 mg tablet
600 mg PO Q6H PRN (Reason: pain) Qty: 14 0RF
No Action
multivitamin Tablet
1 tab PO DAILY
omeprazole 20 mg Capsule,Delayed Release(Dr/Ec)
20 mg PO DAILY
Discharge Orders:
Discharge Patient (As Directed); Ordered 11/20/23
Ordered By: Terrance Reis
Discharge Date and Time
Discharge Date/Time: 11/20/23 17:17
Print Language: GUINEAN

Documented by User: Flavio Dominguez MD 11/20/23 23:59
Discharge Summary
Discharge Data
Date of Admission: 11/18/23
Date of Discharge: 11/20/23
Discharge Plan
-
Patient Disposition: Correction
Discharge Diagnosis/Procedures: Incarcerated inguinal hernia. Right inguinal hernia repair with mesh, small bowel resection.
Condition: Good
Diet: No restrictions
Activity: No strenuous activity
Driving Restrictions: As prior to admission
Bathing Restrictions: OK to Shower
Activity Restrictions/Additional Instructions:
Instructions following Inguinal Hernia Repair
Please call [phone] if you have any questions or concerns after your surgery.
Wound Care:
Your incisions are covered with skin glue which will come off on its own in 5-10 days.
It is ok to shower the day after your surgery. Do not scrub the incisions, let soap and water wash over them and pat dry.
� Bruising around your incisions is normal.
� Using ice packs will help minimize this swelling.
� No swimming or soaking incisions for 1 week.
� Your stitches will dissolve and do not need to be removed.
Wear compression underwear or briefs, do not wear boxers or loose-fitting underwear.
Urinary retention:
If you are unable to urinate 6-8 hours after your surgery, please call [phone] to discuss further management.
Activity:
No heavy lifting more than 15 pounds for the next 3 weeks, then you may gradually lift heavier objects as tolerated by discomfort. Otherwise activity as tolerated by your comfort level.
Pain Management:
Use Tylenol, ibuprofen and ice packs to treat your pain.
� You may take 650 milligrams of Tylenol (Max 3 grams per day) every 6 hours, and 600 mg of ibuprofen also every 6 hours. (you can alternate them every 3 hours)
� You may use an ice pack to your incision as needed.
� If you still have pain not controlled by these measures, take your prescription pain medication if prescribed.
Medications:
You may resume your home medications.
Bowel Medications:
Prescription pain medication can make you constipated. If you take this medication, also take colace 100 mg twice daily (this is over the counter). If this is not sufficient, you may take Miralax (polyethylene glycol) to help move your bowels.
Diet:
After your procedure, there are no dietary restrictions.
Driving restrictions:
No driving if you are taking prescription pain medication or if you think your normal reaction time and attentiveness has been slowed by your surgery.
Things to Look out for:
Worsening Abdominal pain, redness or drainage from incision
Call Doctor for:
Please call if you notice worsening redness or drainage from incision(s) lasting longer than 5 days after your surgery, any foul-smelling drainage from the incision, pain not controlled by pain medications, persistent nausea and vomiting, or for any
fevers greater than 101.3 F. The number for questions/concerns is [phone]
Follow-up:
A follow-up appointment will be scheduled with your surgeon in 3-4 weeks. Please call prior to your appointment if you have any questions or concerns. [phone]
Referrals:
Good Das MD [Active] - in three to four weeks
Terrance Reis MD, Resident [Family Practice Resident Year1] - in one to two weeks
UNKNOWN - PT DOES,NOT KNOW [Family Provider] -
Prescriptions:
New
amoxicillin-pot clavulanate 875-125 mg Tablet
1 tab PO Q12 Qty: 4 0RF
acetaminophen 325 mg tablet
650 mg PO Q6HPRN PRN (Reason: mild pain) Qty: 14 0RF
ibuprofen 600 mg tablet
600 mg PO Q6H PRN (Reason: pain) Qty: 14 0RF
No Action
multivitamin Tablet
1 tab PO DAILY
omeprazole 20 mg Capsule,Delayed Release(Dr/Ec)
20 mg PO DAILY
Discharge Orders:
Discharge Patient (As Directed); Ordered 11/20/23
Ordered By: Terrance Reis
Discharge Date and Time
Discharge Date/Time: 11/20/23 17:17
Print Language: GUINEAN
== END 2023-11-20 17:17 | DRG 329 ==
LOC: 2 SOUTH 03:25
PROVIDERS: Physician Assistant; ADMITTING PHYSICIAN Internal Medicine; ATTENDING PHYSICIAN Family Medicine; CONSULT PHYSICIAN Surgery; EMERGENCY PHYSICIAN Student in an Organized Health Care Education/Training Program
PROC: 0DB80ZZ Excision of Small Intestine, Open Approach (ICD-10-PCS; 2023-11-18)
PROC: 0D9670Z Drainage of Stomach with Drainage Device, Via Natural or Artificial Opening (ICD-10-PCS; 2023-11-18)
PROC: 0YU50JZ Supplement Right Inguinal Region with Synthetic Substitute, Open Approach (ICD-10-PCS; 2023-11-18)
DX: K40.30 Unilateral inguinal hernia, with obstruction, without gangrene, not specified as recurrent (principal); K55.021 Focal (segmental) acute infarction of small intestine; K57.32 Diverticulitis of large intestine without perforation or abscess without bleeding; D17.6 Benign lipomatous neoplasm of spermatic cord; D72.829 Elevated white blood cell count, unspecified; N18.31 Chronic kidney disease, stage 3a; M47.817 Spondylosis without myelopathy or radiculopathy, lumbosacral region; R33.9 Retention of urine, unspecified; G89.29 Other chronic pain; K21.9 Gastro-esophageal reflux disease without esophagitis; M19.012 Primary osteoarthritis, left shoulder; M54.9 Dorsalgia, unspecified; Z90.5 Acquired absence of kidney; Z79.82 Long term (current) use of aspirin; Z85.46 Personal history of malignant neoplasm of prostate; Z85.528 Personal history of other malignant neoplasm of kidney; Z90.79 Acquired absence of other genital organ(s)
CPT/HCPCS: 88304; 88307; 74177; 80048; 80053; 83735; 84100; 85025; 85027; 99291; C1776; C1781; Q9967

== ENCOUNTER → 2024-02-08 13:47 | Outpatient (REF) | payer OTHER, SELFPAY | LOC: HWRAD 13:47 | PROVIDERS: ATTENDING PHYSICIAN Student in an Organized Health Care Education/Training Program | DX: M54.9 Dorsalgia, unspecified (principal) | CPT/HCPCS: 72072; 72110 ==

== ENCOUNTER → 2024-05-31 16:02 | Outpatient (REF) | payer OTHER, SELFPAY | LOC: HWRAD 16:02 | PROVIDERS: ATTENDING PHYSICIAN Dermatology; FAMILY PHYSICIAN Student in an Organized Health Care Education/Training Program | DX: L29.89 Other pruritus (principal) | CPT/HCPCS: 71046 ==